=== PATIENT | male | born 1970 | race Hispanic/Latino ===

== ENCOUNTER 2023-11-07 16:00 | Outpatient (CLI) | payer OTHER | END 2023-11-07 16:01 | disposition home or self-care (01) | LOC: CSHSLEEP 16:00 | PROVIDERS: ATTEND Internal Medicine | DX: G47.33 Obstructive sleep apnea (adult) (pediatric) (principal); R06.83 Snoring; G25.89 Other specified extrapyramidal and movement disorders; G47.31 Primary central sleep apnea | CPT/HCPCS: 95800 ==

== ENCOUNTER 2023-12-25 16:00 | Outpatient (CLI) | payer OTHER | END 2023-12-25 16:01 | disposition home or self-care (01) | LOC: CSHSLEEP 16:00 | PROVIDERS: ATTEND Internal Medicine | DX: G47.33 Obstructive sleep apnea (adult) (pediatric) (principal); G25.89 Other specified extrapyramidal and movement disorders; R06.83 Snoring; G47.00 Insomnia, unspecified | CPT/HCPCS: 95811 ==

== ENCOUNTER 2024-01-30 07:46 | Day surgery (SDC) | payer OTHER ==
[2024-01-29 09:05] VITALS: BMI 28.3
[2024-01-30] MEDS ORDERED: AFRIN NASAL MIST 15 ML BOT ONE (08:29)
[2024-01-30] MEDS ORDERED: PROPOFOL 20 ML ONE (08:35)
[2024-01-30] MEDS ORDERED: Lidocaine 1% PF 5 ML VIAL ONE (09:47)
[2024-01-30] MEDS ORDERED: Ondansetron PF 4 MG/2 ML Vial ONE (09:47)
[2024-01-30] MEDS ORDERED: Dexamethasone 20 MG/5 ML VIAL ONE (09:47)
[2024-01-30] MEDS ORDERED: EPINEPHrine 1 MG/ML VIAL ONE (11:14)
[2024-01-30] MEDS ORDERED: Lidocaine 1% (PF) 30 ML VIAL ONE (11:14)
[2024-01-30] MEDS ORDERED: Mupirocin 2% Ointment 22 GM Tube ONE (11:15)
[2024-01-30] MEDS ORDERED: Midazolam HCl 2 mg/2 ml Vial ONE (11:36)
[2024-01-30] MEDS ORDERED: fentaNYL 50 mcg/mL 1 mL Vial ONE ×3 (11:41→13:03)
[2024-01-30] MEDS ORDERED: Ferric Subsulfate 8 ML TOPICAL SOLN ONE (11:55)
[2024-01-30] MEDS ORDERED: Oxymetazoline HCl 0.05% ( 15 ML ) ONE (11:55)
[2024-01-30] MEDS ORDERED: SUGAMMADEX SODIUM 200 MG/2 ML VIAL ONE (12:08)
[2024-01-30] MEDS ORDERED: Hydrocodone-Acetamin 15 ML UDCUP ONE (14:22)
== END 2024-01-30 15:50 | disposition home or self-care (01) ==
LOC: CSHSDC 07:46
PROVIDERS: ATTEND Specialist
PROC: 09BM8ZZ Excision of Nasal Septum, Via Natural or Artificial Opening Endoscopic (ICD-10-PCS; principal; 2024-01-30)
PROC: 0CTPXZZ Resection of Tonsils, External Approach (ICD-10-PCS; principal; 2024-01-30)
PROC: 0CTNXZZ Resection of Uvula, External Approach (ICD-10-PCS; principal; 2024-01-30)
DX: J35.1 Hypertrophy of tonsils (principal); J34.3 Hypertrophy of nasal turbinates; J34.2 Deviated nasal septum; G47.33 Obstructive sleep apnea (adult) (pediatric); E78.5 Hyperlipidemia, unspecified; F17.200 Nicotine dependence, unspecified, uncomplicated; Z98.52 Vasectomy status; Z98.890 Other specified postprocedural states; Z79.899 Other long term (current) drug therapy
CPT/HCPCS: 88302; 88304; 93005; 93010; J0171; J1100; J2250; J2405; J2704; J3010